=== PATIENT | female | born 1965 | race Caucasian/White ===

== ENCOUNTER 2020-01-13 10:20 | Emergency (ER) | payer MEDICAID, SELFPAY ==
[2020-01-13] VITALS (46 sets, daily range): BP systolic 115–141; BP diastolic 60–86; PULSE 57–78; RESP 9–24; TEMP 36.7; O2SAT 94–98
--- NOTE | 2020-01-13 10:15 | W.ED.GENAD ---
Discharge Plan Discharge Details Primary Care Provider: Unknown,Unknown ED Provider: Danae Prabhakar
--- NOTE | 2020-01-13 10:47 | ED.GENADUL_ITS ---
Discharge Plan Disposition Patient Disposition: HOME Condition: Stable Discharge Details Chief Complaint: OD/Poison Clinical Impression: Intentional overdose of selective serotonin reuptake inhibitor (SSRI), Adenitis Primary Care Provider: Unknown,Unknown ED Provider: Jeannie Rowland Home Meds and New Rx's Prescriptions: No Action No Known Home Meds RF: 0 Discharge Instructions Additional Instructions: Please follow-up closely with mental health as an outpatient. You will be contacted this evening by both mental health as well as career transition specialist for follow-up. Follow-up with arranging outpatient primary care doctor. Follow-up with [facility]. Avoid drinking alcohol. Please discard your remaining Lexapro. Return to the emergency room for any worsening, concerning or alarming symptoms sooner if needed. Referrals: [facility] [Provider Group] Medical Decision Making Is a 54-year-old patient presenting to the emergency room after taking an overdose of a handful of Lexapro and drinking 5 beers last night. Patient reports she recently relocated to the area 2 months ago. Patient reports that she has had large stress in her life for the last 10 years after losing her children and a divorce. Patient reports she was to a millionaire had a beautiful home, ultimately was involved in a divorce, admits to due to stress of the situation drinking too much. Patient reports she lost her children 10 years ago after which she had an initial suicide attempt by overdosing with pills. Patient reports in the last 10 years she had 2 less significant suicidal ideations although she does report somewhat chronic suicidal ideation over the last 10 years. Patient reports yesterday she had a conversation with a friend who reported that she deserved this. Patient reports after this interaction she became very angry and started drinking. She did not have an initial suicidal ideation yesterday but after drinking she started to have suicidal ideation. She reports taking three quarters of her 90 pills of Lexapro. Patient reports she does not take this is a daily medication she had previously but had a refill of medication when she moved and still had the pills with her. Patient reports ingestion occurred at 6:00 PM. Patient reports overnight she awoke vomiting and diarrhea. Patient reports several episodes of both. Patient presents via EMS feeling dehydrated at this time. Reports mild dizziness upon standing. Denies chest pain difficulty breathing. Reports baseline shortness of breath. Patient ports she is currently taking antibiotic for a adenitis in her right groin. Patient speech is clear, she is alert and oriented. Patient denies suicidal ideation at this time. 1045: Spoke with poison control. Regarding Lexapro pro overdose. Reports 14- hour. Of concern for QT prolongation. Other concern is seizure development in the first 14 hours. Recommended checking the electrolytes and tox screen but otherwise given patient's mentation and her overdose at 1800 last night patient should be medically stable Patient's vital signs reviewed and stable. Initial evaluation the patient she is mentating normally, speaking full sentences. No clear complaints of chest or abdominal pain at this time. Patient has mild vague nausea but has not vomited since arrival. Has had no diarrhea since arrival. Patient does feel dehydrated. Patient is somewhat dry oral mucous membranes. Breath sounds are equal and clear. No increase in respiratory effort. Patient's cardiac exam normal. No distal edema present. Patient has benign abdomen. We will plan to check baseline labs, EKG and have mental health evaluation given patient's suicide attempt last night. Patient does contract to safety at this time. Reports she does not feel suicidal at this time. Will have CPSO at bedside until mental health evaluation. Labs reveal no leukocytosis. H&H normal. Patient's electrolytes normal, renal function normal, LFTs are normal. Patient's urinalysis not revealing of infection. Patient's urine drug screen is negative. Alcohol level normal at this time. Patient is medically cleared to see psych. Spoke with Nicolás regarding patient's case. He will evaluate patient. After mental health evaluation of the patient, spoke to Prasanth. He does not feel patient is an immediate risk of safety. Someone for mental health will follow up with the patient later today. He will arrange for a counseling referral. Feels patient does not meet inpatient criteria at this time. Page to career transition specialist to discuss patient's social issues specifically homelessness currently, lack of PCP and resources. Patient had made previous concern of lymph nodes which were swollen in the right groin for which she was currently taking antibiotic. Patient reports this area was bleeding previously. Bleeding and swelling have improved significantly with antibiotic. Patient also makes mention to an area in the right buttocks which was swollen which is nonpalpable at this time which she reports waxes and wanes, patient also reports right axilla discomfort and right breast discomfort. Patient feels she needs a woman wellness exam. Patient was previously seen at [facility] within the month and had CT scanning of her abdomen which revealed no mass. Patient reports her labs are normal. Evaluation of patient's right groin reveals a small palpable area of swelling without obvious fluctuation. No cellulitis overlying. 1345: Spoke with career transition specialist. Who will evaluate patient in the ER at 1400 regarding social concerns and PCP arrangement. 1445: Spoke with career transition specialist who evaluated the patient. She will arrange for PCP follow-up. Patient is concerned with the need for woman's wellness referral, I will provide women's wellness referral. She will follow-up with community resources. Patient is able to return to the [facility] daily for housing. Patient feels comfortable this plan of care. The patient was stable and requested discharge. Prior to discharge, my usual and customary return precautions were reviewed with the patient - this included follow-up instructions and reasons to return to the Emergency Department if conditions worsens, does not improve as expected, or other new concerns arise. HPI General Date/Time Provider Initiated Documentation: 01/13/20 10:35 . HPI Narrative: This is a 54-year-old patient presenting to the emergency room for overdose last evening. Patient arrives via EMS at this time. Patient reports she took a large handful of Lexapro 20 mg tablets. Patient reports she had a full bottle of 90 tablets and feels she has at least a quarter left. Patient ingested meds at approximately 6:00 PM. Patient reports she also drank approximately 5 beers. Patient reports this was with intent to kill herself. Patient reports she awoke in the middle of the night vomiting and having watery diarrhea. Patient ports multiple episodes of vomiting since. Patient reports unable to hold anything down at this time feeling dehydrated. Patient does report mild dizziness when standing. She did report mild diaphoresis when first standing this morning. Patient denies chest pain. Patient reports baseline shortness of breath which is unchanged. Patient's only current medical concern is a swollen lymph node in her right groin. Patient reports multiple other lymph nodes noted recently through her neck and her right breast area. Patient is currently taking antibiotic for lymphadenitis noted. Patient reports lymph node is less swollen than previous but she is aware that she needs medical follow-up and biopsy. Patient does report chronic suicidality since her children were taken from her and a divorce. Patient reports she has been traveling for the last several years. 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 Has been here for the last 2 months. Related Data Home Medications Medication Instructions Recorded Confirmed Unknown [No Known Home Meds] 01/13/20 01/13/20 Allergies Allergy/AdvReac Type Severity Reaction Status Date / Time Sulfa (Sulfonamide Allergy Unverified 01/13/20 10:35 Antibiotics) General Stated Complaint: OD/Poison YANCY: 3 Review of Systems All systems reviewed & are unremarkable except as noted in HPI and below Constitutional Constitutional: Denies chills, Denies fatigue, Denies fever(s), Denies headache(s) and Denies malaise ENT Ears, Nose, Mouth, and Throat: Denies headache(s), Denies neck pain and Denies sore throat Cardiovascular Cardiovascular: Denies chest pain, Denies rapid heart rate, Denies leg edema, Denies palpitations, Reports dyspnea (Baseline, unchanged) and Denies dyspnea on exertion Respiratory Respiratory: Denies cough, Reports dyspnea (Baseline, unchanged) and Denies dyspnea on exertion Gastrointestinal Gastrointestinal: Denies abdominal pain, Reports diarrhea, Reports nausea and Reports vomiting Genitourinary Genitourinary: Denies difficulty voiding, Denies urinary hesitancy and Denies urinary urgency Musculoskeletal Musculoskeletal: Denies neck pain Neurologic Neurologic: Denies headache(s) Endocrine Endocrine: Denies fatigue and Denies palpitations PFSH Social History Smoking/Tobacco Use Status: Current every day Tobacco Type: cigarettes Alcohol Intake: current Alcohol Intake frequency: a few times a month Alcohol type: beer Drug use: Never Substance use type: does not use Do you feel safe in your relationship?: Yes Course Vital Signs Vital signs: Vital Signs Temperature 36.7 C 01/13/20 10:21 Pulse 78 01/13/20 10:21 Blood Pressure 138/86 01/13/20 10:21 Pulse Oximetry 97 01/13/20 10:21 Temperature 36.7 C 01/13/20 10:21 Temperature Source Temporal Artery Scan 01/13/20 10:21 Pulse 78 01/13/20 10:21 Respiratory Rate 16 01/13/20 10:39 Respiratory Effort Non-Labored 01/13/20 10:39 Respiratory Depth Normal 05/04/20 10:39 Respiratory Pattern Normal 01/13/20 10:39 Blood Pressure 138/86 01/13/20 10:21 Blood Pressure Position Supine 01/13/20 10:21 Pulse Oximetry 97 01/13/20 10:21 Oxygen Delivery Method Room Air 01/13/20 10:21 Oxygen Flow Rate 0 01/13/20 10:21 Pain Level 0 01/13/20 10:21
[2020-01-13] MEDS: Normal Saline 1,000 ML 1000 ML IV ×2 (10:50→11:59)
[2020-01-13 10:51] LABS: Abs Immature Grans 0.02 k/cumm (0.0-0.09); Absolute Basophil Count 0.03 k/cumm (0.0-0.2); Absolute Eosinophil Count 0.05 k/cumm (0.0-0.7); Absolute Lymphocyte Count 1.92 k/cumm (1.2-3.4); Absolute Monocyte Count 0.53 k/cumm (0.11-0.7); Absolute Neutrophil Count 7.47 k/cumm (1.2-6.7); Basophils % 0.3; Eosinophils % 0.5; HCT 40.8 % (36.0-46.0); HGB 14.4 g/dL (12.0-15.5); Immature Grans % 0.2 %; Lymphocytes % 19.2; Mean Corp. HGB Concentration 35.3 g/dL (32.0-36.0); Mean Corpuscular Hemoglobin 32.7 pg (27.0-33.0); Mean Corpuscular Volume 92.7 fL (80-95); Mean Platelet Volume 9.8 fL (8.0-11.0); Monocytes % 5.3; Neutrophils % 74.5; Platelet Count 364 x1000/uL (130-400); RBC Distribution Width 12.1 % (11.7-14.6); White Blood Cell Count 10.02 k/cumm (4.4-10.8)
[2020-01-13 11:02] LABS: Salicylate 3.7 mg/dL (2.8-20.0)
[2020-01-13 11:04] LABS: ALT 38 U/L (14-59); AST 21 U/L (15-37); Albumin 3.8 g/dL (3.4-5.0); Alkaline Phosphatase 82 U/L (46-116); Anion Gap 10.6 mmol/L (3-11); BUN 15 mg/dL (7-18); Bilirubin, Total 0.5 mg/dL (0.2-1.0); CO2 25.4 mmol/L (21.0-32.0); CREATININE 0.85 mg/dL (0.55-1.02); Calcium 9.1 mg/dL (8.5-10.1); Chloride 101 mmol/L (98-107); Glucose 95 mg/dL (74-106); Potassium 3.9 mmol/L (3.5-5.1); Sodium 137 mmol/L (136-145); Total Protein 7.5 g/dL (6.4-8.2)
[2020-01-13 11:10] LABS: ETHANOL BLOOD < 3.0 mg/dL (<3)
[2020-01-13 11:13] LABS: Acetaminophen < 2 ug/mL (10-30)
[2020-01-13 11:58] LABS: Bilirubin Negative (Negative); Blood Negative (Negative); Clarity Clear (Clear); Glucose Negative (Negative); Ketones Trace mg/dL (Negative); Leukocyte Esterase Negative (Negative); Nitrite Negative (Negative); Urobilinogen 0.2 EU/dL (Up TO 0.2); pH 5.5 (5-8)
[2020-01-13] MEDS: Normal Saline Flush 10 ML SYR IVP (11:59)
[2020-01-13 12:12] LABS: *AMPHETAMINES SCREEN URINE Negative (Negative); *BARBITURATES SCREEN URINE Negative (Negative); *BENZODIAZEPINES SCREEN URINE Negative (Negative); Cannabinoids THC Negative (Negative); Cocaine Screen,Urine Negative (Negative); METHADONE URINE SCREEN Negative (Negative); OPIATES URINE SCREEN Negative (Negative)
[2020-01-13 12:13] LABS: Tricyclic Antidepressants Negative (Negative)
--- NOTE | 2020-01-13 17:14 | PDOC.ERCMPRO ---
- If Service Date Differs Date of service: 01/13/20 Time of Service: 17:14 Care Management Progress Note S/O CM met with Bryanna at the bedside she is alert and engaged. She is worried that she will not be able to return the motel due to leaving there by ambulance. She states she has no local resources here in [place], she recently left [place] where she was staying with a friend. Bryanna was brought to the ED today via ambulance after overdosing on her medications. She states she has no local support and she was feeling stressed after speaking to her family who she states badgered her. Bryanna has met with mental health over telehealth and has been cleared by crisis. She states she feels safe to return home and CM provided her with crisis information for [facility]. 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 ED provider will send a referral to [facility], this CM has faxed a referral to telephone provider [facility] for ED follow up appointment. CM also faxed a referral to [facility] Medicaid nurse case management and [facility] to assist with housing. CM will follow up referrals, patient will be contacted by crisis this evening and establish her care with therapist.
--- NOTE | 2020-01-13 18:51 | NUR.NOTE ---
Nursing Note Faxed referral to woman [facility]
--- NOTE | 2020-01-17 11:21 | PDOC.MHCN ---
Date of service: 01/14/20 Time of Service: 12:00 Mental Health Crisis Note Presenting Issue How did you arrive at the ED and why did you come: The client is assessed via telehealth after presenting to [facility] ED via ambulance due to overdose (Lexapro and alcohol) that occurred 01/11. Precipitating Factors The client is a 54yo female that is homeless and is currently staying at the [facility] in [place]. She reports moving to the area from [place] in November. She reports significant challenges that have occurred including separation from her children 10 years ago due to divorce, struggles with alcohol abuse, lack of financial stability, stable housing, and issues connecting with local support systems. PCP \ Rx \ medical: The client advises that she has not been setup with a PCP in the area yet. She complains of possible lymph infection. No other reported medical concerns. MH \ Dx \ Hx: The client reports history of depression, anxiety, poor general coping skills and maladaptive stress response. She states that ongoing life stressors have provoked feelings of depression and hopelessness. She is not currently seen by a therapist. She reports 2 voluntary in-patient hospitalizations in the past 10 years with each stay being 2 or more weeks. History of harm to self or others: The client reports 2 prior suicide attempts involving medication overdose. These events occurred 3 years ago and 10 years ago. She advises that the first attempt 10 years ago was her only 'serious' attempt and that subsequent attempts were not done with intention to but rather as a reaction to stress-provoking circumstances and interactions. No reported incidents of harm to others. Alcohol \ KONG: The client reports an extensive history with alcohol use. She advises that drinking is no longer an issue and that she has only been consuming alcohol on an infrequent basis for the past several years. Legal: No reported issues. The client presents lying down on a medical bed wearing a face mask. Her appearance is neat with clean grooming. She is A/Ox4 with immediate, recent, and remote memory intact. She maintains good eye contact throughout assessment and is responsive to questions and appropriate in all interactions with speech that is clear and coherent with normal rate and volume. Her mood is reported as depressed with affect that is flat. No deficits in language or fund of knowledge noted. No evidence of delusions, hallucinations, or psychotic thought process. She reports that on the night of 01/11 she got into a verbal altercation with a friend whereby the friend stated that she deserved to be in her currrent situation. She advises that the stress of this interaction provoked her to overdose on lexapro (unspecified amount) and alcohol (5 or more beers). She states that there was no specific plan involved and that stress can cause reactionary / impulsive behaviors. She rates her current SI 0 out of 10 and states that she is angry at herself for overdosing and is regretul of these behaviors. She denies current intent or plan to harm herself or others. Disposition BEHAVIOR: Appropriate in all interactions. EYE CONTACT: Good MOOD: Depressed AFFECT: Congruent to mood APPETITE: No reported issues. SLEEP(trouble falling/staying asleep: No reported issues. Plan The client has declined the need for voluntary in-patient hospitalization and has agreed to contract for safety. She advises that she is interested in connecting with any available local support systems. This continuity writer has provided the following information: 1. [facility] care management have been made aware of client's lack of PCP and will refer accordingly. Contact information for [facility] has been provided. 2. Contact information for housing and transportation has been provided: [facility], [facility], and [facility]. 3. A counseling referral will be submitted through [facility] and a printed listing of counselors operating in the [facility] region will be mailed to the address provided. 4. Contact information for [facility] Emergency Services has been provided and the client has been encouraged to call with any questions or concerns. The client understands that if she is feeling unsafe or her symptoms rise to the level of emergent then 911 should be called. 5. A check-in call with afterhours / OC clinician has been arranged for tonight. Signature Clinician's Name/Title: Anthony Casey, [facility] Emergency Clinician
== END 2020-01-13 15:01 | disposition home or self-care (01) ==
PROVIDERS: Emergency Provider Physician Assistant; PCP Nurse Practitioner
DX: T43.222A Poisoning by selective serotonin reuptake inhibitors, intentional self-harm, initial encounter (principal); R11.2 Nausea with vomiting, unspecified; R19.7 Diarrhea, unspecified; L04.1 Acute lymphadenitis of trunk; E86.0 Dehydration
CPT/HCPCS: 36415; 80053; 80307; 93005; 96360; 96361; 99285; 80320; 80329; 81003; 85025; 93010; 99281